=== PATIENT | male | born 1960 | race African-American/Black ===

== ENCOUNTER 2019-09-27 23:52 | Emergency (ER) | payer MEDICARE, OTHER ==
[~2019-09-27] VITALS: Ht 170.2 cm; Wt 122.0 kg
[2019-09-28 00:39] VITALS: BP 186/104
[2019-09-28] MEDS ORDERED: PRED20TA PO (00:53)
[2019-09-28] MEDS ORDERED: predniSONE 10 MG TABLET ONE (00:54)
--- NOTE | 2019-09-28 00:54 | PHYS DOC ---
Past Medical History Past Medical History: Bronchitis, Hypertension Past Surgical History: Other Additional Past Surgical Histo: back Smoking Status: Current Every Day Smoker Alcohol Use: None Drug Use: None Adult General Chief Complaint Chief Complaint: WRIST PAIN HPI HPI Patient is a 59 year old AA male who presents to the emergency department with complaints of right wrist pain. Patient states that the pain began tonight. He denies any recent injury, trauma, redness, warmth, or swelling of the joint. 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 He reports that the pain increases if he moves his wrist and that the pain shoots to his fingers. He currently rates the pain 8 out of 10 on the pain scale, he denies taking anything for relief of the discomfort prior to arrival. The pain is exacerbated by movement and palpation, the only thing that helps to relieve the pain is rest. Review of Systems Review of Systems Complete ROS is negative unless otherwise noted in HPI. Current Medications Current Medications Current Medications Medications (Trade) Dose Ordered Sig/Noel Start Time Stop Time Status Last Admin Dose Admin Prednisone (Prednisone) 10 mg STK-MED ONCE 09/28/19 00:54 09/28/19 00:54 DC Allergies Allergies Allergies Coded Allergies Type Severity Reaction Last Updated Verified No Known Drug Allergies 02/11/14 No Physical Exam Physical Exam See Above Constitutional: Well developed, well nourished, no acute distress, non-toxic appearance. [] HENT: Normocephalic, atraumatic, bilateral external ears normal, nose normal. [] Eyes: PERRLA, EOMI, conjunctiva normal, no discharge. [] Neck: Normal range of motion, no stridor. [] Cardiovascular:Heart rate regular rhythm Lungs & Thorax: Respirations even and unlabored, no retractions, no respiratory distress Skin: Warm, dry, no erythema, no rash. [] Extremities: R wrist: no obvious deformity, no bony tenderness, no cyanosis, no clubbing, ROM limited due to pain, no edema, increased pain with Phalen's and Tinnel's testing Neurologic: Alert and oriented X 3, no focal deficits noted. [] Psychologic: Affect normal, judgement normal, mood normal. [] Current Patient Data Vital Signs Vital Signs Date Time Temp Pulse Resp B/P (MAP) Pulse Ox O2 Delivery O2 Flow Rate FiO2 09/28/19 00:39 186/104 (131) 09/28/19 00:05 97.8 85 20 95 Room Air 97.8 EKG EKG [] Radiology/Procedures Radiology/Procedures [] Course & Med Decision Making Course & Med Decision Making Pertinent Labs and Imaging studies reviewed. (See chart for details) Patient is a 59-year-old -[place] male who presented to the emergency room with complaints of right wrist pain that began this evening. He denied any trauma, redness, warmth, or swelling of the affected area. He was placed in a Velcro wrist splint and reported decreased pain after the splint was applied. He was given 60 mg of p.o. prednisone in the emergency department, prescription was written for 20 mg of prednisone to take as directed for 8 days. His blood pressure was 186/104 during my exam. The patient reported that he did not take his blood pressure medication today, patient was advised to take his blood pressure medication upon returning home and then continue to take the medication as prescribed. He was encouraged to follow-up with a primary care provider for further evaluation and treatment of wrist pain. He was instructed to return to the emergency room if his symptoms worsen. Pt verbalized an understanding of home care, medications, follow-up, and return to ED instructions and was in agreement with the plan of care. [] Dragon Disclaimer Dragon Disclaimer This electronic medical record was generated, in whole or in part, using a voice recognition dictation system. Departure Departure Impression: Primary Impression: Acute pain of right wrist Additional Impression: Hypertension Disposition: 01 HOME, SELF-CARE Condition: STABLE Referrals: NO PCP (PCP) Patient Instructions: Wrist Pain, [id number] Additional Instructions: Take your blood pressure medication as prescribed. Fill the prescription and use as directed. Wear the provided wrist splint as needed for comfort. Follow up with a primary care doctor for further evaluation. Return to the ER if symptoms worsen. Scripts Prednisone (PREDNISONE) 20 Mg Tablet 0.5-1 TAB PO UD for 10 Days, #6 TAB 0 Refills take 1 tab by mouth for 4 days starting on Monday09/29/19 then take 0.5 tab for 4 days until gone. Prov: NEHA EDWARDS APRN 09/28/19 Problem Qualifiers Additional Impression: Hypertension Hypertension type: unspecified Qualified Codes: I10 - Essential (primary) hypertension NEHA EDWARDS DENTAL RECEPTIONIST Sep 28, 2019:54
[2019-09-28] MEDS ORDERED: predniSONE 10 MG TABLET PO ONE (01:00)
== END 2019-09-28 00:59 | disposition home or self-care (01) ==
LOC: ER 23:52
DX: M25.531 Pain in right wrist (principal); I10 Essential (primary) hypertension; F17.200 Nicotine dependence, unspecified, uncomplicated
CPT/HCPCS: 29125; 99283; J7512